=== PATIENT | female | born 1970 | race Caucasian/White ===

== ENCOUNTER 2019-06-22 21:29 | Emergency (ER) | payer SELFPAY ==
[2019-06-22 21:35] VITALS: BP 166/72; PULSE 84; TEMP 98.3; BMI 27.3
--- NOTE | 2019-06-22 22:13 | PDOC ---
History of Present Illness - General Chief Complaint: Sore Throat Stated Complaint: sore throat Time Seen by Provider: 06/22/19 22:13 History Source: Patient Exam Limitations: No Limitations - History of Present Illness Initial Comments: 06/22/19 22:41 48yF w PMHx DM, HTN presenting w epigastric pain. Ongoing epigastric pain for past 3 weeks, intermittent, relieved w eating, not associated w position/ exertion. 3d ago started having nasal congestion, sore throat. Also has 2 weeks suprapubic discomfort and urgency. Noted 1 episode of blood specks in nasal discharge after blowing nose this morning, 1 episode blood specks in sputum coughed up yesterday. Did not take any meds. Able to tolerate PO fluids. Denies fevers/chills, headache, cough, nausea/vomiting, bowel mvmt changes. Past History - Past Medical History Allergies/Adverse Reactions: Allergies Allergy/AdvReac Type Severity Reaction Status Date / Time No Known Allergies Allergy Verified 06/22/19 21:35 COPD: No Diabetes: Yes - Psycho Social/Smoking Cessation Hx Smoking History: Never smoked Hx Alcohol Use: No Drug/Substance Use Hx: No Review of Systems - Review of Systems Constitutional: No: Chills, Fever HEENTM: Yes: Nose Congestion, Throat Pain. No: Eye Pain, Recent change in vision Respiratory: No: Cough, Shortness of Breath Cardiac (ROS): No: Chest Pain, Palpitations, Syncope ABD/GI: No: Abdominal Distended, Constipated, Diarrhea, Nausea, Vomiting : Yes: Urgency. No: Burning, Flank Pain Musculoskeletal: No: Back Pain, Joint Pain Integumentary: No: Bruising, Dryness, Erythema Neurological: No: Headache, Seizure, Tingling, Tremors Psychiatric: No: Anxiety, Depression Endocrine: No: Excessive Sweating, Flushing, Intolerance to Cold, Intolerance to Heat Hematologic/Lymphatic: No: Anemia, Easy Bleeding *Physical Exam - Vital Signs Last Vital Signs Temp Pulse Resp BP Pulse Ox 98.3 F 84 19 166/72 99 06/22/19 21:31 06/22/19 21:31 06/22/19 21:31 06/22/19 21:31 06/22/19 21:31 - Physical Exam General Appearance: Yes: Nourished, Appropriately Dressed, Mild Distress HEENT: positive: EOMI, TAY, Normal Voice, Nasal Congestion, Hearing Grossly Normal. negative: Scleral Icterus (R), Scleral Icterus (L), Pharyngeal Erythema , Tonsillar Exudate, Tonsillar Erythema Respiratory/Chest: positive: Lungs Clear, Normal Breath Sounds. negative: Chest Tender, Respiratory Distress, Crackles, Rales, Rhonchi, Stridor, Wheezing Cardiovascular: positive: Regular Rhythm, Regular Rate, S1, S2. negative: Edema , Murmur Gastrointestinal/Abdominal: positive: Normal Bowel Sounds, Tender (mild epigastric discomfort w deep palpation, no suprapubic tenderness), Flat, Soft. negative: Organomegaly, Distended, Guarding, Hernia, Mass Musculoskeletal: negative: CVA Tenderness (R), CVA Tenderness (L) Extremity: positive: Normal Capillary Refill Integumentary: positive: Normal Color. negative: Rash Neurologic: positive: event marketing assistant II-XII NML intact, Fully Oriented, Alert, Normal Response, Motor Strength 5/5, Responsive. negative: Numbness, Confused, Disoriented ED Treatment Course - LABORATORY CBC & Chemistry Diagram: 06/22/19 23:26 06/22/19 23:26 Medical Decision Making - Medical Decision Making 06/22/19 22:48 EKG NSR, HR 88, QTc 484, no ST changes CXR clear lung crystal, normal cardiac size --- 48yF w PMHx DM, HTN presenting w 3wk epigastric pain, 3d nasal congestion, sore throat d/t GERD (pain associated w eating) and viral URI (congestion, sore throat). Low concern for ACS (neg trop, NSR EKG) vs PNA (clear lungs CXR) vs pancreatitis (normal lipase) vs flu (neg) vs UTI (clean UA) Given tylenol, pepcid, maalox DC home Discharge - Discharge Information Problems reviewed: Yes Clinical Impression/Diagnosis: Viral URI GERD (gastroesophageal reflux disease) Qualifiers: Esophagitis presence: without esophagitis Qualified Code(s): K21.9 - Gastro- esophageal reflux disease without esophagitis Condition: Good Disposition: HOME - Admission No - Follow up/Referral Referrals: Rigoberto Bermudez MD [Staff Physician] - - Patient Discharge Instructions Patient Printed Discharge Instructions: DI for Viral Upper Respiratory Infection -- Adult Additional Instructions: You were seen for abdominal pain and sore throat. Your labs did not show anything concerning. You were given medication Take pepcid for your pain. Drink lots of water Please follow up with the referred primary care doctor Come back to the ED if you have worsening chest pain, lose lots of blood, or trouble breathing. --- Usted fue visto por dolor abdominal y dolor de garganta. Sara laboratorios no mostraron nada preocupante. Le dieron medicacin Bonny pepcid para tu dolor. Huma jia agua Jud un seguimiento con el mdico de atencin primaria referido Regrese al servicio de urgencias si tiene un dolor en el pecho que empeora, pierde antonio suzie o tiene problemas para respirar. Print Language: SYRIAC - Post Discharge Activity
[2019-06-22] MEDS ORDERED: ACETAMINOPHEN 1000 MG/100 ML VIAL (NON FORMULARY) IVPB ONE (22:40)
[2019-06-22] MEDS ORDERED: MAG HYDROX/AL HYDROX/SIMETH -MYLANTA- ORAL SUSPENSION PO ONE (22:40)
--- NOTE | 2019-06-22 23:07 | PDOC ---
Documentation entered by Brenden Adame SCRIBE, acting as scribe for Radha Bermudez MD. Radha Bemrudez MD: This documentation has been prepared by the Wendi ding Nirvannie, SCRIBE, under my direction and personally reviewed by me in its entirety. I confirm that the documentation accurately reflects all work, treatment, procedures, and medical decision making performed by me. Attending Attestation - Resident Resident Name: EulaliaAnson - ED Attending Attestation I have performed the following: I have examined & evaluated the patient, The case was reviewed & discussed with the resident, I agree w/resident's findings & plan, Exceptions are as noted - HPI HPI: 06/22/19 22:57 The patient is a 48 year old female, with a significant past medical history of DM and HTN, who presents to the emergency department with 3 weeks of intermittent epigastric abdominal pain alleviated with eating, 2 weeks of urinary urgency and 3 days of nasal congestion. Patient endorses an episode of minimal amount of blood in her nasal congestion and an episode of minimal blood in her sputum yesterday. She denies recent dysuria or hematuria. She denies recent chest pain or shortness of breath. Allergies: NKDA - Physicial Exam PE: 06/22/19 23:04 GENERAL: The patient is in no acute distress. ENT: Ears normal, nares patent, oropharynx clear without exudates. Moist mucous membranes. NECK: Normal range of motion, supple LUNGS: Breath sounds equal, clear to auscultation bilaterally. No wheezes, and no crackles. HEART:Regular rate and rhythm, normal S1 and S2 without murmur, rub or gallop. ABDOMEN: Soft, nondistended, normal bowel sounds, epigastric tenderness to palpation, no voluntary guarding, no rebound, no right upper quadrant tenderness EXTREMITIES: Normal range of motion, no edema. NEUROLOGICAL: Cranial nerves II through XII grossly intact. Normal speech. No focal neurological deficits. SKIN: Warm, Dry, normal turgor, no rashes or lesions noted. - Medical Decision Making 06/22/19 23:04 49-year-old female presenting to the emergency department with a complaint of epigastric pain Pain is been present for some time and seems to be associated with radiation of the chest. No shortness of breath, exertional symptoms. Patient actually denies chest pain. Patient symptoms have been present for several months. She presents emergency department today because she noted phlegm with blood streaking Patient differential diagnosis is broad and includes: GERD, gastritis, pancreatitis, biliary colic unlikely Will do Lab EKG P.o. medication Will plan to discharge 06/22/19 23:29 EKG: NSR rate of 88 bpm, axis nml, intervals nml, no st elevation or depression 06/23/19 00:07 Laboratory Tests 06/22/19 06/22/19 06/22/19 23:00 23:26 23:26 Hgb 13.5 Hct 40.4 BUN 11.7 Creatinine 0.7 Troponin I < 0.02 Lipase Urine Blood Negative Urine Nitrite Negative Ur Leukocyte Esterase Negative 06/22/19 23:26 Hgb Hct BUN Creatinine Troponin I Lipase 149 Urine Blood Urine Nitrite Ur Leukocyte Esterase Will give OTC PO medications (pt can not remember the name of her pharmacy in the [place]) Pt will follow up with her PMD Return to the ER for any other concerns or complaints 06/28/19 20:32 I have contacted this patient regarding the nodule found on the official read of her chest x ray I have asked patient to follow up with her PMD within 1 week for repeat CXR to follow up this nodule I do not have records on her so I can not be sure if this is a new or old nodule Pt has voiced understanding of the plan to follow up with her PMD for chest xray to follow up lung nodule clinical impression: dyspepsia, initial presentation
[2019-06-22 23:23] LABS: URINE APPEARANCE CLEAR; URINE BILIRUBIN NEGATIVE (NEGATIVE); URINE COLOR YELLOW; URINE GLUCOSE (UA) NEGATIVE (NEGATIVE); URINE KETONE NEGATIVE (NEGATIVE); URINE LEUK ESTERASE NEGATIVE (NEGATIVE); URINE NITRITE NEGATIVE (NEGATIVE); URINE PROTEIN NEGATIVE (NEGATIVE); URINE UROBILINOGEN 0.2 mg/dL (0.2-1.0)
[2019-06-22 23:34] LABS: BASO % 0.3 % (0-2.0); EOS % 1.6 % (0-4.5); HEMATOCRIT 40.4 % (32.4-45.2); HEMOGLOBIN 13.5 GM/dL (10.7-15.3); LYMPH % 32.2 % (8-40); MCH 29.8 pg (25.7-33.7); MCHC 33.4 g/dl (32.0-36.0); MEAN CELL VOLUME 89.2 fl (80-96); MEAN PLT VOLUME 8.1 fl (7.5-11.1); MONO % 6.1 % (3.8-10.2); NEUT % 59.8 % (42.8-82.8); PLATELET COUNT 378 K/MM3 (134-434); RBC 4.53 M/mm3 (3.60-5.2); RDW 13.8 % (11.6-15.6); WHITE BLOOD COUNT 9.6 K/mm3 (4.0-10.0)
[2019-06-23 00:04] LABS: ALBUMIN 3.8 g/dl (3.4-5.0); ALK PHOS 110 U/L (45-117); ANION GAP 7 MMOL/L (8-16); BILIRUBIN,TOTAL 0.4 mg/dL (0.2-1); BLOOD UREA NITROGEN 11.7 mg/dL (7-18); CHLORIDE 107 mmol/L (98-107); CO2 25 mmol/L (21-32); CREATININE 0.7 mg/dL (0.55-1.3); GLUCOSE,RANDOM 195 mg/dL (74-106); POTASSIUM 3.8 mmol/L (3.5-5.1); SGOT/AST 17 U/L (15-37); SGPT/ALT 33 U/L (13-61); SODIUM 139 mmol/L (136-145); TOT PROT 7.9 g/dl (6.4-8.2)
[2019-06-23] MEDS ORDERED: FAMOTIDINE 20 MG TABLET PO ONE (00:07)
[2019-06-23] MEDS ORDERED: ACETAMINOPHEN 500 MG TABLET (FP) PO ONE (00:07)
[2019-06-23] MEDS: FAMOTIDINE 20 MG/50 ML IVPB 20 MG/50 ML MG IVPB ONE ×2 (00:08→00:45)
[2019-06-23] MEDS ORDERED: MAG HYDROX/AL HYDROX/SIMETH 30 ML UNIT-DOSE CUP ONE (00:24)
[2019-06-23] MEDS ORDERED: FAMOTIDINE 20 MG/50 ML IVPB 20 MG/50 ML MG IVPB ONE (00:24)
--- NOTE | 2019-06-23 15:27 | EKG ---
Test Reason : Blood Pressure : / mmHG Vent. Rate : 088 BPM Atrial Rate : 088 BPM P-R Int : 152 ms QRS Dur : 098 ms QT Int : 400 ms P-R-T Axes : 051 037 050 degrees QTc Int : 484 ms NORMAL SINUS RHYTHM PROLONGED QT ABNORMAL ECG NO PREVIOUS ECGS AVAILABLE Confirmed by MD LUDIN, VARSHA ([id number]) on 06/23/2019 3:26:52 PM Referred By: Confirmed By:VARSHA NOLAND MD
== END 2019-06-23 00:55 | disposition home or self-care (01) ==
LOC: JER 21:29
PROC: 3E033GC Introduction of Other Therapeutic Substance into Peripheral Vein, Percutaneous Approach (ICD-10-PCS; principal; 2019-06-22)
DX: J06.9 Acute upper respiratory infection, unspecified (principal); K21.9 Gastro-esophageal reflux disease without esophagitis; I10 Essential (primary) hypertension; E11.9 Type 2 diabetes mellitus without complications
CPT/HCPCS: 36415; 71046-TC-FY; 80053; 81003; 83690; 84484; 85025; 87086; 87804; 93005; 93010; 99282-25